=== PATIENT | male | born 1965 | race Caucasian/White ===

== ENCOUNTER 2018-01-23 13:30 | Inpatient (IN) | payer OTHER ==
[~2018-01-23] VITALS: Ht 182.9 cm; Wt 103.5 kg
[2018-01-23 13:38] LABS: BASOPHIL (%) 0.9 % (0-1); BASOPHIL COUNT 0.1 K/uL (0-0.1); EOSINOPHIL (%) 3.6 % (0-5); EOSINOPHIL COUNT 0.2 K/uL (0-0.3); HEMATOCRIT 42.2 % (38.0-50.0); HEMOGLOBIN 14.5 G/DL (12.5-16.6); IMMATURE GRANULOCYTE (%) 0.3 % (0.0-0.7); LYMPHOCYTE (%) 42.9 % (15-42); LYMPHOCYTE COUNT 2.8 K/uL (1.0-2.8); MCH 31.3 PG (29.0-34.0); MCHC 34.4 G/DL (30.0-36.0); MCV 91.1 FL (86-99); MONOCYTE COUNT 0.4 K/uL (0-0.8); NEUTROPHIL (%) 46.3 % (45-76); PLATELET COUNT 169 K/uL (156-360); RBC DIS.WIDTH-CV 12.7 % (11.8-14.6); RBC DIS.WIDTH-SD 41.6 % (39-53); RED BLOOD COUNT 4.63 M/uL (4.00-5.50); WHITE BLOOD COUNT 6.5 K/uL (4.1-10.2)
[2018-01-23 13:46] LABS: AMYLASE 54 IU/L (1-118); CHLORIDE 110 mEq/L (99-109); POTASSIUM 3.8 mEq/L (3.7-5.4); SODIUM 145 mEq/L (136-147)
[2018-01-23 13:48] LABS: GLUCOSE 115 mg/dL (70-99)
[2018-01-23 13:51] LABS: SERUM ETHYL ALCOHOL 230 mg/dL
[2018-01-23 13:52] LABS: CREATININE 0.6 mg/dL (0.6-1.3); GFR ESTIMATE (CALCULATED) > 59 mL/min/ (58.99-99999)
[2018-01-23 13:53] LABS: UREA NITROGEN (BUN) 12 mg/dL (9-23)
[2018-01-23 13:55] LABS: LIPASE 43 U/L (1.0-51.0)
[2018-01-23 14:15] LABS: APPEARANCE CLOUDY ((CLEAR)); BILIRUBIN NEGATIVE; BLOOD LARGE; COLOR YELLOW ((YELLOW)); GLUCOSE (STRIP) NEGATIVE; KETONES NEGATIVE; LEUKOCYTES NEGATIVE; NITRITE NEGATIVE; PROTEIN (STRIP) NEGATIVE; SPECIFIC GRAVITY 1.004 (1.000-1.030); UROBILINOGEN 0.2 MG/DL (0.2-1.0)
[2018-01-23 14:26] LABS: AMPHETAMINE NEGATIVE (500 ng/mL); BARBITURATES NEGATIVE (200 ng/mL); BENZODIAZEPINES NEGATIVE (150 ng/mL); BUPRENORPHINE NEGATIVE (10 ng/mL); COCAINE NEGATIVE (150 ng/mL); METHADONE NEGATIVE (200 ng/mL); METHAMPHETAMINE NEGATIVE (500 ng/mL); OPIATES (MORPHINE) NEGATIVE (100 ng/mL); OXYCODONE NEGATIVE (100 ng/mL); PHENCYCLIDINE NEGATIVE (25 ng/mL); PROPOXYPHENE NEGATIVE (300 ng/mL); THC CANNABINOIDS NEGATIVE (50 ng/mL); TRICYCLIC ANTIDEPRESSANTS NEGATIVE (300 ng/mL)
[2018-01-23 14:35] LABS: AMORPHOUS URATES CRYSTALS 1+; BACTERIA RARE /HPF; EPITHELIAL CELLS RARE /HPF; MUCUS NONE SEEN /LPF; RED BLOOD CELLS 0-5 /HPF (0-5); UCUL ADDED? NO; WHITE BLOOD CELLS 0-5 /HPF (0-5)
[2018-01-23 17:37] VITALS: BP 119/68
[2018-01-23 19:34] VITALS: BP 100/61
[2018-01-23 23:32] VITALS: BP 117/70
[2018-01-24] VITALS (7 sets, daily range): BP systolic 120–149; BP diastolic 64–83
[2018-01-24 05:37] LABS: HEMATOCRIT 38.6 % (38.0-50.0); HEMOGLOBIN 12.9 G/DL (12.5-16.6); MCH 30.5 PG (29.0-34.0); MCHC 33.4 G/DL (30.0-36.0); MCV 91.3 FL (86-99); PLATELET COUNT 201 K/uL (156-360); RBC DIS.WIDTH-CV 12.7 % (11.8-14.6); RBC DIS.WIDTH-SD 42.1 % (39-53); RED BLOOD COUNT 4.23 M/uL (4.00-5.50); WHITE BLOOD COUNT 12.8 K/uL (4.1-10.2)
[2018-01-24 05:58] LABS: ALBUMIN 3.5 G/DL (3.2-4.8); ALKALINE PHOSPHATASE 56 IU/L (3-129); ALT (GPT) 42 IU/L (3-49); AST (GOT) 47 IU/L (2-34); CHLORIDE 101 MEQ/L (99-109); CREATININE 0.5 MG/DL (0.6-1.3); GFR ESTIMATE (CALCULATED) > 59 mL/min/ (58.99-99999); GLUCOSE 120 mg/dL (70-99); TOTAL BILIRUBIN 1.4 MG/DL (0.0-1.0); TOTAL PROTEIN 5.7 G/DL (6.4-8.3); UREA NITROGEN (BUN) 12 mg/dL (9-23)
[2018-01-24 06:02] LABS: POTASSIUM 4.7 MEQ/L (3.7-5.4); SODIUM 136 MEQ/L (136-147)
[2018-01-24] MEDS ORDERED: MELOXICAM15 MG PO (13:21)
[2018-01-24] MEDS ORDERED: CITALOPRAM HBR20 MG PO (13:22)
[2018-01-24] MEDS ORDERED: LEVOTHYROXINE175 MCG PO (13:22)
[2018-01-24] MEDS ORDERED: ONE-A-DAY MEN'1 EAC4 PO (13:22)
[2018-01-25 03:17] VITALS: BP 149/78
[2018-01-25 07:41] VITALS: BP 134/72
[2018-01-25 08:01] LABS: HEMATOCRIT 33.3 % (38.0-50.0); HEMOGLOBIN 11.5 G/DL (12.5-16.6); MCH 31.4 PG (29.0-34.0); MCHC 34.5 G/DL (30.0-36.0); PLATELET COUNT 153 K/uL (156-360); RBC DIS.WIDTH-CV 12.6 % (11.8-14.6); RBC DIS.WIDTH-SD 42.1 % (39-53); RED BLOOD COUNT 3.66 M/uL (4.00-5.50); WHITE BLOOD COUNT 10.8 K/uL (4.1-10.2)
[2018-01-25 08:24] LABS: ALBUMIN 2.9 G/DL (3.2-4.8); ALKALINE PHOSPHATASE 40 IU/L (3-129); ALT (GPT) 31 IU/L (3-49); AST (GOT) 34 IU/L (2-34); C-REACTIVE PROTEIN 126.4 MG/L (0-10); CHLORIDE 99 MEQ/L (99-109); CREATININE 0.5 MG/DL (0.6-1.3); GFR ESTIMATE (CALCULATED) > 59 mL/min/ (58.99-99999); GLUCOSE 105 mg/dL (70-99); POTASSIUM 3.8 MEQ/L (3.7-5.4); SODIUM 133 MEQ/L (136-147); UREA NITROGEN (BUN) 12 mg/dL (9-23)
[2018-01-25 08:29] LABS: TOTAL BILIRUBIN 2.6 MG/DL (0.0-1.0); TOTAL PROTEIN 4.8 G/DL (6.4-8.3)
[2018-01-25 11:04] VITALS: BP 141/82
[2018-01-25 11:43] VITALS: BP 132/85
[2018-01-25 15:31] VITALS: BP 136/83
[2018-01-25 19:20] VITALS: BP 142/80
[2018-01-26 04:09] VITALS: BP 146/86
[2018-01-26 06:02] LABS: BASOPHIL (%) 0.2 % (0-1); EOSINOPHIL (%) 0.4 % (0-5); HEMATOCRIT 32.3 % (38.0-50.0); HEMOGLOBIN 11.3 G/DL (12.5-16.6); LYMPHOCYTE (%) 10.3 % (15-42); MCH 31.8 PG (29.0-34.0); MONOCYTE (%) 7.7 % (3-12); MONOCYTE COUNT 0.7 K/uL (0-0.8); NEUTROPHIL (%) 80.4 % (45-76); NEUTROPHIL COUNT 7.7 K/uL (1.8-6.4); PLATELET COUNT 168 K/uL (156-360); RBC DIS.WIDTH-CV 12.7 % (11.8-14.6); RBC DIS.WIDTH-SD 41.7 % (39-53); RED BLOOD COUNT 3.55 M/uL (4.00-5.50); WHITE BLOOD COUNT 9.6 K/uL (4.1-10.2)
[2018-01-26 06:26] LABS: ALBUMIN 2.6 G/DL (3.2-4.8); ALKALINE PHOSPHATASE 45 IU/L (3-129); ALT (GPT) 26 IU/L (3-49); AST (GOT) 31 IU/L (2-34); C-REACTIVE PROTEIN 127.4 MG/L (0-10); CHLORIDE 99 MEQ/L (99-109); CREATININE 0.5 MG/DL (0.6-1.3); DIRECT BILIRUBIN 1.1 mg/dL (0.0-0.3); GFR ESTIMATE (CALCULATED) > 59 mL/min/ (58.99-99999); GLUCOSE 109 mg/dL (70-99); POTASSIUM 3.9 MEQ/L (3.7-5.4); SODIUM 135 MEQ/L (136-147); TOTAL BILIRUBIN 2.1 MG/DL (0.0-1.0); TOTAL PROTEIN 4.8 G/DL (6.4-8.3); UREA NITROGEN (BUN) 9 mg/dL (9-23)
[2018-01-26 07:55] VITALS: BP 127/75
[2018-01-26 15:29] VITALS: BP 132/78
[2018-01-26 20:03] VITALS: BP 137/76
[2018-01-27 00:23] VITALS: BP 149/75
[2018-01-27 06:23] LABS: BASOPHIL (%) 0.1 % (0-1); EOSINOPHIL (%) 0.1 % (0-5); HEMOGLOBIN 10.4 G/DL (12.5-16.6); IMMATURE GRANULOCYTE (%) 0.7 % (0.0-0.7); LYMPHOCYTE (%) 12.9 % (15-42); MCH 31.5 PG (29.0-34.0); MCHC 34.7 G/DL (30.0-36.0); MCV 90.9 FL (86-99); MONOCYTE (%) 8.1 % (3-12); MONOCYTE COUNT 0.6 K/uL (0-0.8); NEUTROPHIL (%) 78.1 % (45-76); NEUTROPHIL COUNT 5.8 K/uL (1.8-6.4); NRBC (%) 0.4 /100 WBC (0-0); PLATELET COUNT 214 K/uL (156-360); RBC DIS.WIDTH-CV 12.4 % (11.8-14.6); RBC DIS.WIDTH-SD 40.7 % (39-53); WHITE BLOOD COUNT 7.4 K/uL (4.1-10.2)
[2018-01-27 08:36] VITALS: BP 137/77
[2018-01-27 11:00] LABS: ALBUMIN 2.5 G/DL (3.2-4.8); ALKALINE PHOSPHATASE 42 IU/L (3-129); ALT (GPT) 20 IU/L (3-49); AST (GOT) 21 IU/L (2-34); CHLORIDE 100 MEQ/L (99-109); CREATININE 0.5 MG/DL (0.6-1.3); GFR ESTIMATE (CALCULATED) > 59 mL/min/ (58.99-99999); GLUCOSE 119 mg/dL (70-99); POTASSIUM 4.1 MEQ/L (3.7-5.4); SODIUM 135 MEQ/L (136-147); TOTAL PROTEIN 4.5 G/DL (6.4-8.3); UREA NITROGEN (BUN) 13 mg/dL (9-23)
[2018-01-27 12:16] VITALS: BP 159/84
[2018-01-27 15:54] VITALS: BP 147/73
[2018-01-27 20:56] VITALS: BP 120/60
[2018-01-28] VITALS (7 sets, daily range): BP systolic 123–148; BP diastolic 64–76
[2018-01-28 09:36] LABS: HEMATOCRIT 29.9 % (38.0-50.0); HEMOGLOBIN 10.1 G/DL (12.5-16.6); MCH 30.7 PG (29.0-34.0); MCHC 33.8 G/DL (30.0-36.0); MCV 90.9 FL (86-99); NRBC (%) 0.5 /100 WBC (0-0); PLATELET COUNT 219 K/uL (156-360); RBC DIS.WIDTH-CV 12.6 % (11.8-14.6); RED BLOOD COUNT 3.29 M/uL (4.00-5.50); WHITE BLOOD COUNT 6.1 K/uL (4.1-10.2)
[2018-01-28 10:20] LABS: ALBUMIN 2.3 G/DL (3.2-4.8); ALKALINE PHOSPHATASE 36 IU/L (3-129); ALT (GPT) 23 IU/L (3-49); AST (GOT) 26 IU/L (2-34); C-REACTIVE PROTEIN 48.7 MG/L (0-10); CHLORIDE 102 MEQ/L (99-109); CREATININE 0.6 MG/DL (0.6-1.3); GFR ESTIMATE (CALCULATED) > 59 mL/min/ (58.99-99999); GLUCOSE 100 mg/dL (70-99); SODIUM 140 MEQ/L (136-147); TOTAL PROTEIN 4.4 G/DL (6.4-8.3); UREA NITROGEN (BUN) 12 mg/dL (9-23)
[2018-01-28 10:25] LABS: POTASSIUM 3.2 MEQ/L (3.7-5.4); TOTAL BILIRUBIN 0.6 MG/DL (0.0-1.0)
[2018-01-29 03:59] VITALS: BP 130/74
[2018-01-29 07:45] VITALS: BP 147/77
[2018-01-29 10:56] VITALS: BP 133/72
[2018-01-29 16:54] VITALS: BP 139/70
[2018-01-29 19:30] VITALS: BP 135/76
[2018-01-29 23:38] VITALS: BP 135/72
[2018-01-30 03:53] VITALS: BP 120/63
[2018-01-30 07:35] VITALS: BP 116/64
[2018-01-30 09:14] LABS: HEMATOCRIT 31.2 % (38.0-50.0); HEMOGLOBIN 10.7 G/DL (12.5-16.6); MCHC 34.3 G/DL (30.0-36.0); MCV 90.4 FL (86-99); NRBC (%) 0.4 /100 WBC (0-0); PLATELET COUNT 265 K/uL (156-360); RBC DIS.WIDTH-CV 12.7 % (11.8-14.6); RBC DIS.WIDTH-SD 41.3 % (39-53); RED BLOOD COUNT 3.45 M/uL (4.00-5.50); WHITE BLOOD COUNT 7.2 K/uL (4.1-10.2)
[2018-01-30 09:38] LABS: CHLORIDE 104 MEQ/L (99-109); CREATININE 0.4 MG/DL (0.6-1.3); GFR ESTIMATE (CALCULATED) > 59 mL/min/ (58.99-99999); GLUCOSE 114 mg/dL (70-99); POTASSIUM 3.6 MEQ/L (3.7-5.4); SODIUM 139 MEQ/L (136-147); UREA NITROGEN (BUN) 8 mg/dL (9-23)
[2018-01-30 11:28] VITALS: BP 120/66
[2018-01-30 15:27] VITALS: BP 126/70
[2018-01-31 00:13] VITALS: BP 130/68
[2018-01-31 05:48] LABS: HEMOGLOBIN 10.5 G/DL (12.5-16.6); MCH 30.6 PG (29.0-34.0); MCHC 33.9 G/DL (30.0-36.0); MCV 90.4 FL (86-99); PLATELET COUNT 287 K/uL (156-360); RBC DIS.WIDTH-CV 12.8 % (11.8-14.6); RBC DIS.WIDTH-SD 41.8 % (39-53); RED BLOOD COUNT 3.43 M/uL (4.00-5.50); WHITE BLOOD COUNT 6.8 K/uL (4.1-10.2)
[2018-01-31 07:50] VITALS: BP 123/62
[2018-01-31] MEDS ORDERED: HYDROCODON-ACE1 EA11 PO (11:50)
[2018-01-31 16:32] VITALS: BP 110/59
== END 2018-01-31 18:45 | disposition home health service (06) | DRG 907 ==
LOC: TRA 13:30 → EDOF 13:49 → 3EAST 13:49 → ENRESERV 13:49 → EDOF 15:45 → ENRESERV 16:00 → 3EAST 17:37
PROVIDERS: Emergency Medicine; Physician Assistant Medical; Physician Assistant Surgical; Student in an Organized Health Care Education/Training Program
PROC: 04LY0ZZ Occlusion of Lower Artery, Open Approach (ICD-10-PCS; principal; 2018-01-23)
PROC: 0DB80ZZ Excision of Small Intestine, Open Approach (ICD-10-PCS; 2018-01-26)
DX: S35 Injury of blood vessels at abdomen, lower back and pelvis level (principal); S36.439A Laceration of unspecified part of small intestine, initial encounter; S31.612A Laceration without foreign body of abdominal wall, epigastric region with penetration into peritoneal cavity, initial encounter; X99.9XXA Assault by unspecified sharp object, initial encounter; K65.1 Peritoneal abscess; I95.9 Hypotension, unspecified; E03.9 Hypothyroidism, unspecified; G89.29 Other chronic pain; M54.5 Low back pain; F10.129 Alcohol abuse with intoxication, unspecified; F43.10 Post-traumatic stress disorder, unspecified; F41.9 Anxiety disorder, unspecified; F32.9 Major depressive disorder, single episode, unspecified; Z53.31 Laparoscopic surgical procedure converted to open procedure
CPT/HCPCS: 71045; 71046; 74177; 80048; 80053; 81003; 82150; 82248; 83690; 85025; 85027; 86140; 86850; 86900; 86901; 86920; 88307; 93005; 94799; 99281; 99285; C9113; G0480; J0131; J0330; J0690; J1170; J1650; J1670; J2270; J2405; J2710; J3010; J7120; J7643; S0074